=== PATIENT | male | born 1930 | race Caucasian/White ===

== ENCOUNTER 2017-12-30 08:44 | Inpatient (IN) | payer MEDICARE, OTHER ==
[2017-12-30] VITALS (13 sets, daily range): BP systolic 106–160; BP diastolic 55–84
[~2017-12-30] VITALS: Ht 170.2 cm; Wt 67.6 kg
--- NOTE | 2017-12-30 09:07 | NUR ---
AAOX3, BIB DAUGHTER C/O COUGH X 3 DAYS AND GETTING WORSE EACH DAY. RESP IS EVEN AND UNLABORED WITH NAD NOTED. SKIN IS WARM AND DRY. AWAITING MD FOR EVAL. PROVIDED WARM BLANKET FOR COMFORT.
--- NOTE | 2017-12-30 09:48 | NUR ---
IV INSERTED RAC 20G, BLOOD SAMPLE SENT TO LAB.
[2017-12-30 09:55] LABS: BASOPHILS % (AUTO) 0.7 % (0.0-2.0); EOSINOPHILS % (AUTO) 6.7 % (0.0-6.0); HEMATOCRIT 42 % (39-51); HEMOGLOBIN 14.3 g/dL (13.5-17.5); LYMPHOCYTES # (AUTO) 1.4 /CMM (0.8-4.8); LYMPHOCYTES % (AUTO) 21.7 % (20.0-44.0); MEAN CORPUSCULAR HGB CONC 34 g/dl (31.0-36.0); MEAN CORPUSCULAR VOLUME 89 fL (80-96); MONOCYTES # (AUTO) 0.4 /CMM (0.1-1.30); NEUTROPHILS # (AUTO) 4.1 /CMM (1.8-8.9); NEUTROPHILS % (AUTO) 64.9 % (43.0-81.0); PLATELET COUNT (AUTO) 164 /CMM (150-450); RDW COEFFICIENT OF VARIATION 13.3 (11.5-15.0); RED BLOOD CELL COUNT(AUTO) 4.71 MIL/uL (4.5-6.0); WHITE BLOOD COUNT (AUTO) 6.3 K/uL (4.3-11.0)
[2017-12-30 10:04] LABS: CALCIUM, SERUM 8.2 mg/dL (8.5-10.1); CARBON DIOXIDE 31 mmol/L (21-32); CHLORIDE 107 mmol/L (98-107); CREATININE 0.9 mg/dL (0.6-1.3); GLUCOSE 101 mg/dL (74-106); POTASSIUM 4.2 mmol/L (3.5-5.1); SODIUM SERUM 141 mmol/L (136-145); UREA NITROGEN, BLOOD 29 mg/dL (7-18)
[2017-12-30 10:09] LABS: INR 0.98 (0.85-1.15)
[2017-12-30] MEDS ORDERED: FINA5TAB3 PO (10:55)
[2017-12-30] MEDS ORDERED: ASPI-1169 PO (10:55)
[2017-12-30] MEDS ORDERED: SOLI5TAB2 PO (10:55)
[2017-12-30] MEDS ORDERED: IOHEXOL-350 100 ML VIAL IV ONE (10:58)
[2017-12-30] MEDS ORDERED: CT SWABBABLE VALVE TRANS SET 1 EA INFUS.SET MC ONE (10:58)
--- NOTE | 2017-12-30 12:24 | NUR ---
ICU 254
--- NOTE | 2017-12-30 12:53 | NUR ---
Report given to FRANCO Mills for [facility] ICU 254.
--- NOTE | 2017-12-30 13:14 | NUR ---
SHOPPING INSPECTOR RECEIVED PATIENT FROM ER. PATIENT WAS ABLE TO STAND UP AND WALK TO THE BED FROM [facility]. GOOD GAIT. STABLE VITAL SINGS. SINUS RHYTHM ON MONITOR. ABLE TO VERBALIZE NEEDS. FAMILY AT BEDSIDE. NO ACTIVE HEMOPTYSIS AT THIS TIME. WILL CONTINUE TO MONITOR AND PROVIDE CARE.
[2017-12-30] MEDS ORDERED: Z GUARD REMEDY 2 OZ OINT TP PRN (13:30)
[2017-12-30] MEDS ORDERED: ONDANSETRON HCL/PF 4 MG/2 ML VIAL IVP PRN (13:30)
[2017-12-30] MEDS ORDERED: ACETAMINOPHEN 325 MG TABLET PO PRN (13:30)
[2017-12-30] MEDS: IV NS 0.9% 1,000 ML IV PRN (13:41)
[2017-12-30] MEDS: OXYBUTYNIN CHLORIDE 5 MG TABLET PO SCH (17:29)
--- NOTE | 2017-12-30 19:35 | NUR ---
RN NOTES RECEIVED PT AWAKE ON BED.NO ACUTE RESP DISTRESS ON RA. AOX3 ABLE TO VERBALIZED NEEDS. SB HR 53. NO SOB. WARMTH TO TOUCH AFEBRILE, DENIES ANY PAIN. IV SITE ON RAC G 18 AND LFA G 20 RUNNING WITH NS @ 75 CC/HR INTACT AND PATENT. PT REQUESTED TO GO TO THE BATHROOM OFFERED TO USED BEDSIDE COMMODE BUT PT REFUSED. PT HAS STABLE GAIT ABLE TO AMBULATE WELL. ASSISTED TO THE BATHROOM TOLERATED WELL. PER PT HE HAD A BOWEL BUT NOT BLACK OR ANY BLOOD MATTER. NO EPISODE OF HEMOPTYSIS AT THIS TIME. KEPT PT CLEAN AND DRY. CALL LIGHT KEPT WITHIN EASY REACH INSTRUCTION PROVIDED. WILL CONTINUE TO MONITOR.
--- NOTE | 2017-12-30 22:00 | NUR ---
RN NOTES PT STILL HAD AN EPISODE OF COUGHING OUT SPUTUM WITH BLOOD. NO COMPLAIN OF PAIN. AFEBRILE. ASSISTED TO THE BATHROOM. PT CONCERN WITH HIS BOWEL EDUCATE PT REGARDING POSS. SIDE EFFECT OF THE MEDICINE. STOOL NOTED WITH MODERATE AMT OF SOFT STOOL BUT NOT DIARRHEA. VERBALIZED UNDERSTANDING WITH SON AT BEDSIDE. WILL CONTINUE TO MONITOR.
[2017-12-31] VITALS (13 sets, daily range): BP systolic 106–145; BP diastolic 50–71
[2017-12-31 05:02] LABS: BASOPHILS % (AUTO) 0.3 % (0.0-2.0); EOSINOPHILS % (AUTO) 7.3 % (0.0-6.0); HEMATOCRIT 40 % (39-51); HEMOGLOBIN 13.6 g/dL (13.5-17.5); LYMPHOCYTES % (AUTO) 27.3 % (20.0-44.0); MEAN CORPUSCULAR HGB CONC 34 g/dl (31.0-36.0); MEAN CORPUSCULAR VOLUME 91 fL (80-96); MONOCYTES # (AUTO) 0.5 /CMM (0.1-1.30); MONOCYTES % (AUTO) 6.9 % (2.0-12.0); NEUTROPHILS # (AUTO) 4.3 /CMM (1.8-8.9); NEUTROPHILS % (AUTO) 58.2 % (43.0-81.0); PLATELET COUNT (AUTO) 173 /CMM (150-450); RDW COEFFICIENT OF VARIATION 14.3 (11.5-15.0); RED BLOOD CELL COUNT(AUTO) 4.36 MIL/uL (4.5-6.0); WHITE BLOOD COUNT (AUTO) 7.3 K/uL (4.3-11.0)
[2017-12-31] MEDS: IV NS 0.9% 1,000 ML IV PRN (05:13)
[2017-12-31 05:36] LABS: CHOLESTEROL 129 mg/dL (<200); HDL CHOLESTEROL 51 mg/dL (40-60); LDL 73 mg/dL (0-99); THYROID STIMULATING HORMONE 1.834 uIU/mL (0.358-3.74); TRIGLYCERIDES 35 mg/dL (30-150)
[2017-12-31 05:39] LABS: ALANINE AMINOTRANSFERASE 26 U/L (12-78); ALBUMIN 2.9 g/dL (3.4-5.0); ALKALINE PHOSPHATASE 69 U/L (46-116); ASPARTATE AMINOTRANSFERASE 18 U/L (15-37); BILIRUBIN,TOTAL 0.5 mg/dL (0.2-1.0); CALCIUM, SERUM 8.4 mg/dL (8.5-10.1); CARBON DIOXIDE 28 mmol/L (21-32); CHLORIDE 108 mmol/L (98-107); CREATININE 0.8 mg/dL (0.6-1.3); GLUCOSE 80 mg/dL (74-106); PHOSPHORUS 2.7 mg/dL (2.5-4.9); POTASSIUM 4.3 mmol/L (3.5-5.1); SODIUM SERUM 141 mmol/L (136-145); TOTAL PROTEIN, SERUM 6.7 g/dL (6.4-8.2); UREA NITROGEN, BLOOD 22 mg/dL (7-18)
--- NOTE | 2017-12-31 06:53 | NUR ---
RN NOTES PT ASLEEP WELL ON BED. BREATHING EVEN AND UNLABORED. DENIES PAIN. SATING WELL ON RA. BECKIE MONITOR REVEALS SB LOWEST 52, AFEBRILE. ASSISTED TO THE BATHROOM WHEN NEEDED. EPISODE OF HEMOPTYSIS STILL NOTED. NO SOB. IV SITE REMAINED INTACT AND PATENT WITH ONGOING IVF. TOLERATED WELL. KEPT PT CLEAN AND DRY. WILL ENDORSED CONTINUITY OF CARE TO AM NURSE.
--- NOTE | 2017-12-31 07:30 | NUR ---
RADIOLOGY PHYSICIAN ASSISTANT RECEIVED PATIENT FROM THE PREVIOUS SHIFT. PATIENT IS IN BED. RESTING COMFORTABLY. NO ACUTE DISTRESS NOTED. EVEN AND NON LABORED BREATHING PATTERN. ROOM AIR. MINIMAL HEMOPTYSIS NOTED ON [place]. WILL CONTINUE TO MONITOR AND PROVIDE CARE.
[2017-12-31] MEDS: OXYBUTYNIN CHLORIDE 5 MG TABLET PO SCH ×2 (08:29→16:36)
[2017-12-31] MEDS: FINASTERIDE (5 MG) 5 MG TABLET PO SCH (08:29)
[2017-12-31] MEDS ORDERED: SOLIFENACIN SUCCINATE 5 MG TABLET PO SCH (09:00)
--- NOTE | 2017-12-31 17:24 | NUR ---
ACCOUNTANT ASSISTANT TRANSFERRED THE PATIENT TO /S LEVEL CARE ON STABLE CONDITIONS. REPORT GIVEN.
--- NOTE | 2017-12-31 17:40 | NUR ---
MS RN RECEIVED A NEW TRANSFER FROM ICU, 87 YEAR OLD MALE,AWAKE,ALERT,ORIENTED X4,NOT IN ANY FORM OF DISTRESS, RESPIRATIONS EVEN AND UNLABORED,NO SOB NOTED. CAME IN W/ DX OF HEMOPTISIS, FOR BRONCHOSCOPY IN AMLUNGS ARE CLEAR,ABDOMEN SOFT,POSITIVE BOWEL SOUNDS,DENIES PAIN AT THIS TIME, WILL MONITOR PATIENT'S CONDITION.
--- NOTE | 2017-12-31 19:30 | NUR ---
MS RN NOTES, RECEIVED IN BED A/O X4, ABLE TO VERBALIZED NEED AND CONCERNS, NO C/O PAIN OR DISCOMFORT AT THIS TIME, AT RA, BREATHING EVEN AND UNLABORED, SON AT BEDSIDE, EXPLAINED TO PATIENT AND SON THAT PATIENT NEEDS TO BE NPO AFTER MIDNIGHT FOR BRONCHOSCOPY PROCEDURE IN THE MORNING, EDUCATION PROVIDED AND THEY VERBALIZED UNDERSTANDING, WILL MONITOR PATIENT'S CONDITION.
[2018-01-01] VITALS (8 sets, daily range): BP systolic 101–153; BP diastolic 42–72
--- NOTE | 2018-01-01 06:45 | NUR ---
MS RN CLOSING NOTES, PATIENT AWAKE IN BED, NO C/O PAIN OR DISCOMFORT AT THIS TIME, AT RA, BREATHING EVEN AND UNLABORED, NO SIGNIFICANT CHANGE OF CONDITION DURING THIS SHIFT, NPO SINCE MIDNIGHT FOR BRONCHOSCOPY PROCEDURE TODAY, WILL ENDORSE CONTINUITY OF CARE TO NEXT SHIFT NURSE.
[2018-01-01] MEDS ORDERED: ANESTHESIA TRAY IN PYXIS 1 EA TRAY MC ONE (07:05)
--- NOTE | 2018-01-01 07:10 | NUR ---
RN NOTES PT IS SITTING UP IN BED, RESTING COMFORTABLY. PT IS ALERT AND ORIENTED. PT ON RA, RESPIRATIONS ARE EVEN AND UNLABORED. IV ON RAC INTACT AND SL. NO SIGNS OF DISTRESS NOTED. SAFETY MEASURES ARE IN PLACE, CALL LIGHT IS IN REACH. WILL CONTINUE TO MONITOR.
[2018-01-01] MEDS ORDERED: SUCCINYLCHOLINE CHLORIDE 20 MG/ML VIAL ONE (08:00)
[2018-01-01] MEDS: FINASTERIDE (5 MG) 5 MG TABLET PO SCH (09:00)
[2018-01-01] MEDS: OXYBUTYNIN CHLORIDE 5 MG TABLET PO SCH ×2 (09:00→16:01)
[2018-01-01] MEDS: CARBOXYMETHYLCELLULOSE SODIUM 0.4 ML DROPERETTE EACHEYE PRN ×2 (15:19→22:23)
--- NOTE | 2018-01-01 18:32 | NUR ---
RN NOTES PT IS SITTING UP IN BED, ALERT AND ORIENTED, WITH FAMILY AT BEDSIDE. PT ON RA, RESPIRATIONS ARE EVEN AND UNLABORED. IV ON LFA AND RAC INTACT AND SL. ALL MEDS WERE GIVEN ORDERED. PT NEEDS ANTICIPATED FOR AND MET. NO SIGNS OF DISTRESS NOTED. SAFETY MEASURES ARE IN PLACE, CALL LIGHT IS IN REACH. WILL ENDORSE TO SAMPLE PATTERNMAKER RN FOR CONTINUITY OF CARE.
--- NOTE | 2018-01-01 19:05 | NUR ---
RN OPENING NOTES PATIENT RECEIVED IN BED, ALERT AND ORIENTED, VERBALLY RESPONSIVE, NO SOB, BREATHING EVEN AND UNLABORED, NO C/O PAIN, IN NO ACUTE DISTRESS. ALL PATIENT'S NEEDS ATTENDED TO AT THIS TIME. PLACED CALL LIGHT WITHIN EASY REACH, SAFETY PRECAUTIONS IN PLACE. WILL CONTINUE TO MONITOR.
[2018-01-01] MEDS: HYDROCODONE BIT/HOMATROPINE 5 ML UDC PO PRN (22:28)
[2018-01-02] VITALS: BP 121/67
[2018-01-02 04:00] VITALS: BP 121/62
--- NOTE | 2018-01-02 04:38 | NUR ---
RN NOTES REMOVED PATIENT'S IV PERIPHERAL LINE ON RAC PER PATIENT'S REQUEST. PT TOLERATED PROCEDURE WELL, NOTED SITE WITH NO REDNESS, NO BLEEDING, NO S/S OF INFECTION. PATIENT WITH IV HEPLOCK ON LFA G#20, INTACT AND PATENT. WILL CONTINUE TO MONITOR.
[2018-01-02] MEDS: HYDROCODONE BIT/HOMATROPINE 5 ML UDC PO PRN ×2 (05:30→13:14)
[2018-01-02] MEDS: CARBOXYMETHYLCELLULOSE SODIUM 0.4 ML DROPERETTE EACHEYE PRN (05:48)
--- NOTE | 2018-01-02 06:21 | NUR ---
MEDSUR RN CLOSING NOTES PATIENT AWAKE IN BED, ALERT AND ORIENTED X 3, NOTED WITH NO SOB, BREATHING EVEN AND UNLABORED IN ROOM AIR, NO EPISODE OF HEMOPTYSIS NOTED THROUGHOUT THE SHIFT. REMAINS TO BE IN NO ACUTE DISTRESS, WITH NO C/O PAIN. ALL PATIENT'S NEEDS ATTENDED TO, BED IN LOW POSITION AND LOCKED IN PLACE. PATIENT IS AWARE OF SAFETY NEEDS. CALL LIGHT WITHIN EASY REACH. WILL ENDORSE TO AM SHIFT NURSE FOR CONTINUITY OF CARE.
[2018-01-02 08:00] VITALS: BP 115/53
[2018-01-02] MEDS: FINASTERIDE (5 MG) 5 MG TABLET PO SCH (08:47)
[2018-01-02] MEDS: OXYBUTYNIN CHLORIDE 5 MG TABLET PO SCH ×2 (08:47→17:40)
--- NOTE | 2018-01-02 15:58 | NUR ---
MS CREDIT ASSOCIATE CLOSING NOTES PATIENT AWAKE IN CHAIR, ALERT AND ORIENTED X 3, NOTED WITH NO SOB, BREATHING EVEN AND UNLABORED IN ROOM AIR, NO EPISODE OF HEMOPTYSIS NOTED THROUGHOUT THE SHIFT. REMAINS TO BE IN NO ACUTE DISTRESS, WITH NO C/O PAIN. ALL PATIENT'S NEEDS ATTENDED, BED IN LOW POSITION AND LOCKED IN PLACE. CALL LIGHT IN REACH. WILL ENDORSE TO FRANCO CHENG FOR CONTINUITY OF CARE.
[2018-01-02 16:00] VITALS: BP 110/59
--- NOTE | 2018-01-02 19:10 | NUR ---
RN NOTES: RECEIVED REPORT FROM CASIMIRO LOUIS AT 1600. PATIENT AOX3. NONLABORED BREATHING NOTED ON ROOM AIR. NO SIGNS OF DISTRESS NOTED. DENYING CHEST PAIN AND DENYING COUGHING. NO HEMOPTYSIS DURING SHIFT. AWAITING PATHOLOGY REPORT-PENDING. PATIENT AMBULATED WELL DURING SHIFT, NO DISTRESS AND WAS STABLE. BED IN LOWEST LOCKED POSITION. CALL LIGHT WITHIN REACH. ENDORSED TO NEXT SHIFT
[2018-01-02 20:00] VITALS: BP 115/58
--- NOTE | 2018-01-02 20:00 | NUR ---
RN NOTES RECEIVED PATIENT AWAKE IN BED WITH NO RESPIRATORY DISTRESS OR SHORTNESS OF BREATH. BREATHING EVEN AND UNLABORED. ROOM AIR TOLERATING WELL. NO COMPLAINT OF PAIN OR DISCOMFORT. ALERT AND ORIENTED WITH EPISODES OF CONFUSION. VITAL SIGNS WNL. KEPT CLEAN AND DRY. WILL CONTINUE TO MONITOR.
[2018-01-02] MEDS: GUAIFENESIN/D-METHORPHAN HB 5 ML UDC PO PRN (21:49)
[2018-01-03 04:00] VITALS: BP 126/85
--- NOTE | 2018-01-03 06:30 | NUR ---
RN CLOSING NOTES ALERT AND ORIENTED WITH EPISODES OF FORGETFULNESS, IN BED RESTING COMFORTABLY. NO DISTRESS. BREATHING EVEN AND UNLABORED. NO COMPLAINT OF PAIN OR DISCOMFORT. VITAL SIGNS WNL. KEPT CLEAN AND DRY. WILL ENDORSE TO AM SHIFT FOR CONTINUITY OF CARE.
--- NOTE | 2018-01-03 07:21 | NUR ---
MS RN OPENING NOTE RECEIVED BEDSIDE SBAR REPORT ON THE PATIENT. PATIENT IS A/O X4, AWAKE, SITTING ON THE CHAIR BY THE BED. PATIENT IS AMBULATORY AND ORIENTED TO OWN ABILITIES. CONTINENT/BRP. CURRENTLY ON ROOM AIR SATURATING 96%. DENIES PAIN/DISCOMFORT. CHEST IS RISING EQUALLY/BILATERALLY. CALL LIGHT WITHIN REACH. EDUCATED TO CALL FOR ASSISTANCE USING THE CALL LIGHT AND VERBALIZED UNDERSTAIN. FAMILY MEMBER JAX AT THE BEDSIDE. DISCHARGE ORDER IN CHART. PER DR. CLINTON DISCHARGE IF CLEARED BY DR. PADILLA. AWAITING FRO MALENA FROM DR. PADILLA. PER JAX HE CAN NOVELTY CHAIN MAKER THE PATIENT AT 4PM OR AFTER. WILL INFORM THE HOSPITALIST. TREATMENT/DISCHARGE PLANNING DISCUSSED WITH PT/FAMILY AT THE BEDSIDE. ALL NEEDS ARE MET AT THIS TIME. WILL CONTINUE TO ASSESS/MONITOR THROUGHOUT THE SHIFT.
[2018-01-03 08:00] VITALS: BP 144/69
[2018-01-03] MEDS: OXYBUTYNIN CHLORIDE 5 MG TABLET PO SCH (09:23)
[2018-01-03] MEDS: FINASTERIDE (5 MG) 5 MG TABLET PO SCH (09:23)
[2018-01-03] MEDS: GUAIFENESIN/D-METHORPHAN HB 5 ML UDC PO PRN (09:27)
--- NOTE | 2018-01-03 09:28 | NUR ---
PATIENT PRESENTS WITH COUGH. REQUESTED COUGH MEDICINE. ADMINISTERED ORDERED.
--- NOTE | 2018-01-03 10:07 | NUR ---
DR PADILLA AT THE BEDSIDE. PER DR PADILLA PATIENT IS CLEAR TO GO HOME. WILL INFORM DR CLINTON.
--- NOTE | 2018-01-03 10:28 | NUR ---
DR CLINTON AT THE BEDSIDE. DISCUSSED PATIENT'S DISCHARGE WITH DR. CLINTON. PATIENT'S SON ESTHELA INFORMED OF PATIENT'S DISCHARGE. PER SON HE WILL BE ABLE TO LOCAL BULK DRIVER THE PATIENT BETWEEN 4-6PM. CHARGE NURSE NOTIFIED.
--- NOTE | 2018-01-03 11:12 | NUR ---
DISCHARGE EDUCATION PROVIDED TO PATIENT/FAMILY. PT/FAMILY VERBALIZED UNDERSTANDING OF THE TEACHINGS. ALL BELONGINGS ARE ACCOUNTED FOR.
--- NOTE | 2018-01-03 15:58 | NUR ---
PATIENT'S SON ON HIS WAY. IV CATHETER REMOVED WITH THE TIP INTACT.. OCLUSIVE DRESSING APPLIED. PATIENT TOLERATED PROCEDURE WELL.
[2018-01-03 16:00] VITALS: BP 133/71
--- NOTE | 2018-01-03 17:09 | NUR ---
PATIENT LEFT THE UNIT ACCOMPANIED BY THE SON AND THE FAMILY IN STABLE CONDITION.
== END 2018-01-03 17:10 | disposition home or self-care (01) | DRG 166 ==
LOC: ER 08:45 → ICU 12:36 → MEDSG1 12-31 17:11
PROVIDERS: ADMIT Nurse Practitioner Acute Care; ATTEND Nurse Practitioner Acute Care
PROC: 0B9F8ZX Drainage of Right Lower Lung Lobe, Via Natural or Artificial Opening Endoscopic, Diagnostic (ICD-10-PCS; principal; 2018-01-01 08:13)
DX: J20.9 Acute bronchitis, unspecified (principal); J96.01 Acute respiratory failure with hypoxia; N17.0 Acute kidney failure with tubular necrosis; R04.2 Hemoptysis; I50.32 Chronic diastolic (congestive) heart failure; T17.590A Other foreign object in bronchus causing asphyxiation, initial encounter; N40.0 Benign prostatic hyperplasia without lower urinary tract symptoms; I35.1 Nonrheumatic aortic (valve) insufficiency; R91.8 Other nonspecific abnormal finding of lung field; X58.XXXA Exposure to other specified factors, initial encounter; Y93.9 Activity, unspecified; Y92.009 Unspecified place in unspecified non-institutional (private) residence as the place of occurrence of the external cause
CPT/HCPCS: 36415; 71045-TC; 80048-TC; 80053-TC; 80061-TC; 83735-TC; 84100-TC; 84443-TC; 84484-TC; 85025-TC; 85730-TC; 87081-TC; 87102-TC; 87116; 87206; 88305-TC; 88312-TC; 93307-TC; A4606; J0330; J1100; J2405; J2704; J3490; J7030; Q9967; Z7610